=== PATIENT | male | born 1990 | race Caucasian/White ===

== ENCOUNTER 2017-06-02 11:14 | Emergency (ER) | payer OTHER ==
[2017-06-02 11:22] VITALS: BP 117/72
--- NOTE | 2017-06-02 12:04 | ED Physician Documentation ---
PD HPI SKIN - Stated complaint Stated Complaint: LEFT LEG REDNESS - Chief complaint Chief Complaint: Wound - History obtained from History obtained from: Patient - History of Present Illness Timing - onset: How many days ago (2) Timing - duration: Days Timing - details: Gradual onset, Still present Location: LLE (anterior thigh, started as pimple-like and then got bigger.) Quality / character: Painful, Discolored (red), Swelling Associated symptoms: No: Fever, Myalgias Contributing factors: No: Insect bite /sting, Recent illness Similar symptoms before: Has not had sx before Recently seen: Not recently seen Review of Systems Constitutional: denies: Fever, Chills GI: denies: Nausea, Vomiting PD PAST MEDICAL HISTORY - Past Medical History Past Medical History: No - Past Surgical History Past Surgical History: No - Present Medications Home Medications: Ambulatory Orders Medication Instructions Recorded Confirmed Doxycycline Monohydrate 100 mg PO BID #14 tablet 06/02/17 Mupirocin 1 applic TP TID #15 oint...g. 06/02/17 Naproxen [Naprosyn] 500 mg PO BID PRN #20 tablet 06/02/17 - Allergies Allergies/Adverse Reactions: Allergies Allergy/AdvReac Type Severity Reaction Status Date / Time Sulfa (Sulfonamide Allergy Unknown Verified 06/02/17 11:36 Antibiotics) - Social History Does the pt smoke?: No Smoking Status: Never smoker Does the pt drink ETOH?: Yes Does the pt have substance abuse?: No - Immunizations Immunizations are current?: Yes PD ED PE NORMAL - Vitals Vital signs reviewed: Yes - General General: Alert and oriented X 3, No acute distress, Well developed/nourished - Back Back: No CVA TTP - Derm Derm: Normal color, Warm and dry - Extremities Extremities: Other (left upper anterior thigh with rounded area of redness with central darker red and raised with point of almost pimple-like. ) - Neuro Neuro: Alert and oriented X 3, No motor deficit, No sensory deficit, Normal speech Results - Vitals Vitals: Vital Signs - 24 hr 06/02/17 11:20 Temperature 36.1 C L Heart Rate 66 Respiratory 18 Rate Blood Pressure 117/72 O2 Saturation 100 PD MEDICAL DECISION MAKING - ED course Complexity details: considered differential, d/w patient Departure - Departure Disposition: Home, Self Care Clinical Impression: Cellulitis of left thigh Condition: Stable Record reviewed to determine appropriate education?: Yes Instructions: ED Staph Infec Abx Tx Only Follow-Up: MARCEL Larson [Provider Group] Prescriptions: Doxycycline Monohydrate 100 mg PO BID #14 tablet Mupirocin 1 applic TP TID #15 oint...g. Naproxen [Naprosyn] 500 mg PO BID PRN #20 tablet PRN Reason: Pain Comments: Apply ice to the area periodically through the day. Apply mupirocin topical antibiotic 2-3 times daily to the area. He can apply it to any other small spots that might start nearby it as well. Use doxycycline antibiotic twice daily for a week. Naproxen twice daily for inflammation and pain. Add Tylenol if needed for pain. Recheck if not improved over the next 2-3 days. Return sooner if it is worsening over the next couple of days or he have general symptoms such as nausea or fever or general aches. Discharge Date/Time: 06/02/17 12:31
[2017-06-02] MEDS ORDERED: IBUPROFEN 600 MG TABLET PO STA (12:18)
[2017-06-02] MEDS ORDERED: DOXYCYCLINE 100 MG TABLET PO STA (12:18)
== END 2017-06-02 12:31 | disposition home or self-care (01) ==
LOC: ED 11:14
DX: L03.116 Cellulitis of left lower limb (principal)
CPT/HCPCS: 99283; A9270